=== PATIENT | male | born 1960 | race Caucasian/White ===

== ENCOUNTER → 2022-08-29 | Outpatient (CLI) | payer OTHER ==
--- NOTE | 2022-08-30 09:53 | CA ---
Transthoracic Echo Report Name: Flaquito Hooper Age: 62 Gender: M : 1960 Exam Date: 08/29/2022 15:57 Exam Location: [facility] Ht (in): 66 Wt (lb): 120 Ordering Physician: Issa Borden DO Attending/Referring Phys: [employer] Alice Khoury RDCS Procedure CPT: Indications: R01.1 Cardiac Hx: Technical Quality: Fair Contrast 1: Total Dose (mL): Contrast 2: Total Dose (mL): MEASUREMENTS (Male / Female) Normal Values 2D ECHO LV Diastolic Diameter PLAX 3.6 cm 4.2 - 5.9 / 3.9 - 5.3 cm LV Systolic Diameter PLAX 2.6 cm IVS Diastolic Thickness 0.9 cm 0.6 - 1.0 / 0.6 - 0.9 cm LVPW Diastolic Thickness 1.2 cm 0.6 - 1.0 / 0.6 - 0.9 cm LV Relative Wall Thickness 0.6 RV Internal Dim ED PLAX 2.3 cm LA Volume 59.4 cm??? 18 - 58 / 22 - 52 cm??? M-MODE Aortic Root Diameter MM 2.1 cm LA Systolic Diameter MM 1.6 cm LA Ao Ratio MM 0.8 AV Cusp Separation MM 1.3 cm DOPPLER AV Peak Velocity 195.4 cm/s AV Peak Gradient 15.3 mmHg AV Mean Velocity 133.0 cm/s AV Mean Gradient 7.6 mmHg AV Velocity Time Integral 32.9 cm LVOT Peak Velocity 148.8 cm/s LVOT Peak Gradient 8.9 mmHg LVOT Velocity Time Integral 28.5 cm MV Area PHT 3.0 cm??? Mitral E Point Velocity 58.2 cm/s Mitral A Point Velocity 92.9 cm/s Mitral E to A Ratio 0.6 MV Deceleration Time 249.7 ms MV E' Velocity 12.7 cm/s Mitral E to MV E' Ratio 4.6 TR Peak Velocity 174.5 cm/s TR Peak Gradient 12.2 mmHg Right Ventricular Systolic Press 17.1 mmHg FINDINGS Left Ventricle Normal Left ventricular size, wall thickness, systolic function with no obvious regional wall motion abnormalities. Normal Left ventricular diastolic filling pattern. Left ventricular ejection fraction is estimated at 55-60 %. Right Ventricle Normal right ventricular size and function. Right ventricular systolic pressure within normal limits. Right Atrium Normal right atrial size. Left Atrium Mildly increased left atrial volume. Mitral Valve Structurally normal mitral valve. Mild mitral regurgitation. Aortic Valve Trileaflet aortic valve. No aortic valve stenosis or regurgitation. Tricuspid Valve Structurally normal tricuspid valve. Mild tricuspid regurgitation. Pulmonic Valve Structurally normal pulmonic valve. Trace pulmonic regurgitation. Pericardium No pericardial effusion. Aorta Normal size aortic root and proximal ascending aorta. CONCLUSIONS Normal left ventricular ejection fraction 55-60% Mildly dilated left atrium Mild mitral regurgitation Mild tricuspid regurgitation Previewed by: Dr. Jared Adames DO (Electronically Signed) Final Date: 30 August 2022 09:53
== END | disposition home or self-care (01) ==
LOC: RADECHMAIN 15:45
PROVIDERS: ATTEND Family Medicine
DX: I08.1 Rheumatic disorders of both mitral and tricuspid valves (principal); R01.1 Cardiac murmur, unspecified
CPT/HCPCS: 93306

== ENCOUNTER → 2023-09-11 | Outpatient (CLI) | payer OTHER ==
[2023-09-11 15:36] LABS: HCT 36.5 % (39.6-50.0); HGB 11.2 g/dL (13.0-17.0); MCH 19.3 pg (27.0-32.0); MCHC 30.7 g/dL (32.0-37.0); NRBC Per 100 WBC 0.02 X 10*3/uL (0.00-0.01); Platelet Count 191 X 10*3/uL (140-440); RBC 5.79 X 10*6/uL (4.40-5.60); RDW 17.7 % (11.5-14.5); WBC 7.36 X 10*3/uL (4.50-10.00)
[2023-09-11 16:14] LABS: ALT 12 U/L (10-49); AST 16 U/L (14-35); Albumin 4.7 g/dL (3.8-4.9); Albumin/Globulin Ratio 2.76 Ratio (1.60-3.17); Alkaline Phosphatase 44 U/L (41-126); BUN/Creat Ratio 40.88 Ratio (12.00-20.00); Blood Urea Nitrogen 32.7 mg/dL (9.0-27.0); Calcium 10.1 mg/dL (8.7-10.3); Carbon Dioxide 26.3 mmol/L (21.6-31.8); Chloride 109 mmol/L (96-109); Chol/HDL Ratio 2.79 Ratio; Globulin 1.7 g/dL (1.6-3.3); Glucose 119 mg/dL (70-110); LDL Cholesterol,Calculated 102.9 mg/dL (0.0-131.0); Potassium 4.7 mmol/L (3.5-5.5); Sodium 146 mmol/L (135-145); Total Bilirubin 1.1 mg/dL (0.3-1.2); Total Protein 6.4 g/dL (6.2-8.2); VLDL Calculation 8.68 mg/dL (5.00-40.00)
== END | disposition home or self-care (01) ==
LOC: LABWHC1 10:36
PROVIDERS: ATTEND Family Medicine
DX: Z00.00 Encounter for general adult medical examination without abnormal findings (principal)
CPT/HCPCS: 36415; 80053; 80061; 82306; 83036; 84153; 85027

== ENCOUNTER → 2023-12-11 | Outpatient (CLI) | payer OTHER ==
--- NOTE | 2023-12-11 15:50 | PE ---
EXAMINATION TYPE: PET CT fusion skull to thigh DATE OF EXAM: 12/11/2023 CLINICAL INDICATION:Male, 63 years old with history of C61 PROSTATE CANCER; TECHNIQUE: Following the intravenous administration of 6.1 mCi of Ga-68 Illuccix (PSMA), whole body images are performed from the skull base to the midthigh. Images are reviewed on the computer in th e coronal, axial, and sagittal planes. Reconstructed rotating images are created on independent work station and reviewed on the computer. A non-contrast CT is performed in conjunction with the PET sc an. CT DLP: 232.89 mGycm, Automated exposure control for dose reduction was used. COMPARISON: CT None, PET/CT None, MRI: None FINDINGS: Mediastinal SUV mean is 1.96. Hepatic parenchyma SUV mean is 6.59. SKULL BASE AND NECK: No suspicious radiotracer activity. CHEST, MEDIASTINUM, AND HILAR REGION: No suspicious radiotracer activity. ABDOMEN AND PELVIS: Prostate gland demonstrates radiotracer uptake with a maximum SUV of 20. This is most prominent within the posterior aspect of the prostate gland bilaterally MUSCULOSKELETAL STRUCTURES: 1.4 cm sclerotic lesion within the right superior pubic ramus. Additional subcentimeter sclerotic foci within the inferior left hemisacrum and left iliac bone. None of these demonstrate corresponding radiotracer uptake. Favored to represent benign bone islands. OTHER CT: Moderate calcification of the LAD. Sigmoid diverticulosis. Biapical pleural-parenchymal sca rring. IMPRESSION: Radiotracer uptake identified within the prostate gland most consistent with reported prostate cancer . No distant radiotracer uptake to suggest metastasis.
== END | disposition home or self-care (01) ==
LOC: RADPETMAIN 08:35
PROVIDERS: ATTEND Urology
DX: C61 Malignant neoplasm of prostate (principal)
CPT/HCPCS: 78815; A9552

== ENCOUNTER → 2024-08-17 | Outpatient (CLI) | payer OTHER ==
[2024-08-17 19:12] LABS: Basophils # (A) 0.05 X 10*3/uL (0.00-0.10); Basophils % (A) 0.6 %; Elliptocytes 2+ (None Seen); Eosinophils # (A) 0.07 X 10*3/uL (0.04-0.35); Eosinophils % (A) 0.8 %; HCT 37.6 % (39.6-50.0); HGB 11.5 g/dL (13.0-17.0); Lymphocytes # (A) 2.72 X 10*3/uL (0.90-5.00); Lymphocytes % (A) 31.6 %; MCH 19.5 pg (27.0-32.0); MCHC 30.6 g/dL (32.0-37.0); MCV 63.6 FL (80.0-97.0); Microcytosis (M) 2+ (None Seen); Monocytes % (A) 5.8 %; NRBC Per 100 WBC 0 X 10*3/uL (0.00-0.01); Neutrophils # (A) 5.23 X 10*3/uL (1.80-7.70); Neutrophils % (A) 60.9 %; Platelet Count 217 X 10*3/uL (140-440); RBC 5.91 X 10*6/uL (4.40-5.60); RDW 17.6 % (11.5-14.5)
[2024-08-17 19:39] LABS: ALT 16 U/L (10-49); AST 18 U/L (14-35); Albumin 4.6 g/dL (3.8-4.9); Alkaline Phosphatase 54 U/L (41-126); Carbon Dioxide 26.7 mmol/L (21.6-31.8); Chloride 106 mmol/L (96-109); Chol/HDL Ratio 4.07 Ratio; Globulin 2.3 g/dL (1.6-3.3); Glucose 103 mg/dL (70-110); LDL Cholesterol,Calculated 123.1 mg/dL (0.0-131.0); Potassium 4.3 mmol/L (3.5-5.5); Sodium 144 mmol/L (135-145); Total Bilirubin 1.3 mg/dL (0.3-1.2); Total Protein 6.9 g/dL (6.2-8.2)
== END | disposition home or self-care (01) ==
LOC: LABWHC1 14:19
PROVIDERS: ATTEND Family Medicine
DX: Z00.00 Encounter for general adult medical examination without abnormal findings (principal); C61 Malignant neoplasm of prostate
CPT/HCPCS: 36415; 80053; 80061; 82306; 83036; 84153; 84443; 85025